=== PATIENT | female | born 1990 | race Two or more races ===

== ENCOUNTER 2022-03-30 10:55 | Emergency (ER) | payer OTHER ==
[~2022-03-30] VITALS: Ht 165.1 cm; Wt 99.3 kg
[2022-03-30] MEDS ORDERED: PRENA1 TRUE CO1 EACH (12:09)
== END 2022-03-30 15:32 | disposition home or self-care (01) ==
LOC: ER 10:55
DX: U07.1 COVID-19 (principal)

== ENCOUNTER 2022-04-08 21:47 | Emergency (ER) | payer OTHER ==
[~2022-04-08] VITALS: Ht 165.1 cm; Wt 99.3 kg
[~2022-04-08 21:47] MED LIST: PRENA1 TRUE CO1 EACH
[2022-04-09] MEDS ORDERED: ONDANSETRON HCL4 MG PO (03:47)
[2022-04-09] MEDS ORDERED: PEPCID AC20 MG PO (03:47)
== END 2022-04-09 05:37 | disposition home or self-care (01) ==
LOC: ER 21:47
DX: O26.891 Other specified pregnancy related conditions, first trimester (principal); Z3A.08 8 weeks gestation of pregnancy; R10.84 Generalized abdominal pain; R11.2 Nausea with vomiting, unspecified; K59.00 Constipation, unspecified; R16.0 Hepatomegaly, not elsewhere classified

== ENCOUNTER 2022-04-19 11:38 | Emergency (ER) | payer OTHER ==
[~2022-04-19] VITALS: Ht 165.1 cm; Wt 101.2 kg
[~2022-04-19 11:38] MED LIST changes: +ONDANSETRON HCL4 MG PO; +PEPCID AC20 MG PO
[2022-04-19] MEDS ORDERED: ZITHROMAX500 MG PO (15:03)
== END 2022-04-19 16:35 ==
LOC: ER 11:38
DX: O99.891 Other specified diseases and conditions complicating pregnancy (principal); Z3A.10 10 weeks gestation of pregnancy; G43.909 Migraine, unspecified, not intractable, without status migrainosus; H66.91 Otitis media, unspecified, right ear

== ENCOUNTER 2022-10-26 11:15 | Inpatient (IN) | payer OTHER ==
[~2022-10-26] VITALS: Ht 165.1 cm; Wt 47.2 kg
[~2022-10-26 11:15] MED LIST changes: +ZITHROMAX500 MG PO
[2022-10-30] MEDS ORDERED: IRON325 MG PO (06:29)
== END 2022-11-01 11:57 | disposition home or self-care (01) | DRG 788 ==
LOC: EDSTATUS 11:15 → O/R 10-30 05:30 → OB/GYN 10-30 05:30 → SURH 10-30 08:30 → OB/GYN 10-30 10:21 → SURH 10-30 11:15 → OB/GYN 11-01 11:57
PROVIDERS: ADMIT Obstetrics & Gynecology; ATTEND Obstetrics & Gynecology
PROC: 4A1HXCZ Monitoring of Products of Conception, Cardiac Rate, External Approach (ICD-10-PCS; 2022-10-30)
PROC: 10D00Z1 Extraction of Products of Conception, Low, Open Approach (ICD-10-PCS; principal; 2022-10-30 08:30)
DX: O34.211 Maternal care for low transverse scar from previous cesarean delivery (principal); Z3A.38 38 weeks gestation of pregnancy; Z37.0 Single live birth; Z20.822 Contact with and (suspected) exposure to COVID-19